=== PATIENT | male | born 1980 | race Two or more races ===

== ENCOUNTER 2022-10-10 09:22 | Emergency (ER) | payer OTHER ==
[~2022-10-10] VITALS: Ht 172.7 cm; Wt 73.0 kg
[~2022-10-10 09:22] MED LIST: INTESTINEX680 M1 PO; ONDANSETRON ODT4 MG SL; PEPCID AC20 MG PO; PROTONIX40 MG; RAMIPRIL5 MG; SIMVASTATIN40 MG
[2022-10-10] MEDS ORDERED: LOSARTAN POTASS50 MG PO (09:36)
[2022-10-10] MEDS ORDERED: DEXILANT30 MG PO (09:37)
== END 2022-10-10 12:11 | disposition home or self-care (01) ==
LOC: ER 09:22
DX: I10 Essential (primary) hypertension (principal); E78.00 Pure hypercholesterolemia, unspecified; Z88.0 Allergy status to penicillin